=== PATIENT | female | born 1995 | race Caucasian/White ===

== ENCOUNTER 2021-01-11 13:04 | Emergency (ER) | payer OTHER ==
[~2021-01-11 13:04] MED LIST: AUGMENTIN 875-1 EACH PO; BENTYL 20MG TAB20 MG PO; CEFUROXIME500 MG PO; FLEXERIL 10 MG10 MG PO; IBUPROFEN400 MG PO; IBUPROFEN600 MG PO; MOTRIN SUS100 MG/5 M PO; NORCO 5-325 TA1 EACH PO; OMNICEF 300 MG300 MG PO; PHENERGAN 25 MG25 M1 PO; PRENATAL VITAM1 EAC8 PO; ZANTAC150 MG PO; ZOFRAN ODT 4 MG4 MG PO; ZOFRAN4 MG PO
== END 2021-01-11 16:20 | disposition home or self-care (01) ==
LOC: ER1 13:04
DX: O20.0 Threatened abortion (principal); Z3A.01 Less than 8 weeks gestation of pregnancy
CPT/HCPCS: 81001; 84703; 99284

== ENCOUNTER → 2021-03-02 | Outpatient (CLI) | payer OTHER ==
[~2021-03-02] MED LIST changes: +AMOXICILLIN500 M1 PO
== END ==
LOC: US 13:27
DX: O26.891 Other specified pregnancy related conditions, first trimester (principal); M79.662 Pain in left lower leg; Z3A.08 8 weeks gestation of pregnancy; R59.0 Localized enlarged lymph nodes; O12.01 Gestational edema, first trimester
CPT/HCPCS: 93971

== ENCOUNTER 2021-03-04 12:35 | Emergency (ER) | payer OTHER ==
[~2021-03-04 12:35] MED LIST changes: -AMOXICILLIN500 M1 PO
[2021-03-04 14:27] LABS: BUN/CREATININE RATIO 14 (0-10); HEMOGLOBIN 11.5 gm/dl (12.3-15.3); RED BLOOD COUNT 4.28 M/UL (4.00-5.10); WHITE BLOOD COUNT 6.3 K/UL (4.5-11.0)
[2021-03-04] MEDS ORDERED: AMOXICILLIN500 M1 PO (18:15)
== END 2021-03-04 18:31 | disposition home or self-care (01) ==
LOC: ER1 12:35
PROVIDERS: Nurse Practitioner
DX: O99.891 Other specified diseases and conditions complicating pregnancy (principal); M79.89 Other specified soft tissue disorders; R59.0 Localized enlarged lymph nodes; R53.83 Other fatigue; M79.81 Nontraumatic hematoma of soft tissue; Z20.822 Contact with and (suspected) exposure to COVID-19; Z87.891 Personal history of nicotine dependence; Z79.899 Other long term (current) drug therapy; Z3A.01 Less than 8 weeks gestation of pregnancy
CPT/HCPCS: 0240U; 71045; 80053; 81001; 85025; 85652; 86140; 86757; 99284

== ENCOUNTER 2021-06-30 16:30 | Outpatient (CLI) | payer OTHER ==
[~2021-06-30 16:30] MED LIST changes: +AMOXICILLIN500 M1 PO
== END 2021-06-30 23:15 | disposition home or self-care (01) ==
LOC: GENOP 16:30
DX: O99.891 Other specified diseases and conditions complicating pregnancy (principal); R10.13 Epigastric pain; Z3A.24 24 weeks gestation of pregnancy
CPT/HCPCS: 81001; 96360; 96361; J7120

== ENCOUNTER 2021-07-13 15:59 | Observation (INO) | payer OTHER ==
[~2021-07-13] VITALS: Ht 165.1 cm; Wt 108.9 kg
[2021-07-13 17:47] LABS: HEMOGLOBIN 9.4 gm/dl (12.3-15.3); RED BLOOD COUNT 3.63 M/UL (4.00-5.10)
[2021-07-13 18:42] LABS: BUN/CREATININE RATIO 8 (0-10)
== END 2021-07-14 13:40 | disposition home or self-care (01) ==
LOC: ER1 15:59 → CDU 18:59
PROVIDERS: Physician Assistant Medical; ADMIT Obstetrics & Gynecology
DX: O98.512 Other viral diseases complicating pregnancy, second trimester (principal); O99.512 Diseases of the respiratory system complicating pregnancy, second trimester; O30.042 Twin pregnancy, dichorionic/diamniotic, second trimester; O23.42 Unspecified infection of urinary tract in pregnancy, second trimester; U07.1 COVID-19; J12.82 Pneumonia due to coronavirus disease 2019; Z3A.26 26 weeks gestation of pregnancy; Z79.899 Other long term (current) drug therapy
CPT/HCPCS: 36415; 71045; 80053; 81001; 83605; 85025; 87040; 87086; 93005; 96361; 96374; 99285; G0378; J0696; U0002

== ENCOUNTER 2021-09-19 20:48 | Outpatient (CLI) | payer OTHER | END 2021-09-20 07:50 | disposition home or self-care (01) | LOC: GENOP 20:48 | DX: O47.03 False labor before 37 completed weeks of gestation, third trimester (principal); Z3A.36 36 weeks gestation of pregnancy | CPT/HCPCS: G0463 ==

== ENCOUNTER 2021-09-26 05:48 | Inpatient (IN) | payer OTHER ==
[~2021-09-26] VITALS: Ht 165.1 cm; Wt 116.6 kg
[2021-09-26] MEDS ORDERED: COLACE100 MG PO (07:53)
[2021-09-26] MEDS ORDERED: HYDROCODON-ACE1 EAC4 PO (07:53)
[2021-09-26] MEDS ORDERED: IBUPROFEN600 MG PO (07:53)
[2021-09-26 07:56] LABS: HEMOGLOBIN 8.9 gm/dl (12.3-15.3); RED BLOOD COUNT 4.2 M/UL (4.00-5.10); WHITE BLOOD COUNT 6.4 K/UL (4.5-11.0)
[2021-09-26] MEDS ORDERED: ZANTAC-360 (FAM20 MG PO (10:33)
[2021-09-26] MEDS ORDERED: VALTREX500 MG PO (10:34)
[2021-09-26] MEDS ORDERED: PRENATAL VITAM1 EAC5 PO (10:35)
[2021-09-27 06:49] LABS: HEMOGLOBIN 7.4 gm/dl (12.3-15.3)
[2021-09-27] MEDS ORDERED: FERROUS SULFAT325 M2 PO (11:17)
== END 2021-09-28 14:25 | disposition home or self-care (01) | DRG 787 ==
LOC: OB 05:48
PROVIDERS: ADMIT Obstetrics & Gynecology
PROC: 10D00Z1 Extraction of Products of Conception, Low, Open Approach (ICD-10-PCS; principal; 2021-09-26 07:30)
DX: O30.043 Twin pregnancy, dichorionic/diamniotic, third trimester (principal); O98.32 Other infections with a predominantly sexual mode of transmission complicating childbirth; D62 Acute posthemorrhagic anemia; O99.52 Diseases of the respiratory system complicating childbirth; J45.909 Unspecified asthma, uncomplicated; O99.344 Other mental disorders complicating childbirth; F32.A Depression, unspecified; O99.214 Obesity complicating childbirth; M19.90 Unspecified osteoarthritis, unspecified site; O99.892 Other specified diseases and conditions complicating childbirth; E66.9 Obesity, unspecified; O99.02 Anemia complicating childbirth; O99.72 Diseases of the skin and subcutaneous tissue complicating childbirth; O99.334 Smoking (tobacco) complicating childbirth; F17.200 Nicotine dependence, unspecified, uncomplicated; A60.00 Herpesviral infection of urogenital system, unspecified; O24.424 Gestational diabetes mellitus in childbirth, insulin controlled; Z37.2 Twins, both liveborn; Z90.89 Acquired absence of other organs; Z98.890 Other specified postprocedural states; Z82.49 Family history of ischemic heart disease and other diseases of the circulatory system; Z82.3 Family history of stroke; Z83.49 Family history of other endocrine, nutritional and metabolic diseases; Z37.0 Single live birth; Z3A.37 37 weeks gestation of pregnancy
CPT/HCPCS: 81001; 82800; 85014; 85018; 85025; 90715; C9113; J0690; J1885; J2274; J2370; J2405; J2550; J2590; J3010; J7120

== ENCOUNTER → 2022-04-10 | Outpatient (CLI) | payer OTHER ==
[~2022-04-10] MED LIST changes: +COLACE100 MG PO; +FERROUS SULFAT325 M2 PO; +HYDROCODON-ACE1 EAC4 PO; +PRENATAL VITAM1 EAC5 PO; +VALTREX500 MG PO; +ZANTAC-360 (FAM20 MG PO
== END ==
LOC: LAB 10:53
DX: Z20.822 Contact with and (suspected) exposure to COVID-19 (principal)
CPT/HCPCS: 36415; U0003